=== PATIENT | male | born 1950 | race Caucasian/White ===

== ENCOUNTER 2017-12-11 09:17 | Inpatient (IN) | payer OTHER ==
[2017-12-09 16:11] LABS: BASOPHILS % (AUTO) 0.4 % (0-1); EOSINOPHILS # (AUTO) 0.2 X10'3 (0-0.9); EOSINOPHILS % (AUTO) 2.5 % (0-6); LYMPHOCYTES # (AUTO) 2.2 X10'3 (1.1-4.8); LYMPHOCYTES % (AUTO) 24.7 % (21-51); MEAN CORPUSCULAR HEMOGLOBIN 28.2 PG (27.0-31.0); MEAN CORPUSCULAR HGB CONC 32.7 % (33.0-36.5); MEAN CORPUSCULAR VOLUME 86.4 FL (78-98); MONOCYTES # (AUTO) 0.9 X10'3 (0-0.9); MONOCYTES % (AUTO) 9.7 % (2-12); NEUTROPHILS # (AUTO) 5.6 X10'3 (1.8-7.7); NEUTROPHILS % (AUTO) 62.7 % (42-75); PRE OP HEMATOCRIT 47.5 % (42.0-52.0); PRE OP HEMOGLOBIN 15.5 g/dL (14.0-17.9); PRE OP PLATELET COUNT 192 X10'3 (140-440); RED CELL DISTRIBUTION WIDTH 13.4 % (11.5-14.5)
[2017-12-09 16:19] LABS: CLARITY,URINE CLEAR (Clear); COLOR,URINE STRAW (Yellow); GLUCOSE, URINE >=1000 mg/dl (Neg); KETONES,URINE NEGATIVE (Neg); LEUKOCYTE ESTERASE ,URINE NEGATIVE (Neg); NITRITES, URINE NEGATIVE (Neg); OCCULT BLOOD,URINE NEGATIVE (Neg); PROTEIN,URINE NEGATIVE (Neg); UROBILINOGEN,URINE 0.2 E.U/dL (0.2-1.0)
[2017-12-09 16:21] LABS: PRE OP PROTIME 9.9 SECONDS (9.0-12.0)
[2017-12-09 16:29] LABS: ALBUMIN 3.9 G/DL (3.4-5.0); ALBUMIN/GLOBULIN RATIO 1.1 (1.1-1.5); ALKALINE PHOSPHATASE 53 IU/L (46-116); BLOOD UREA NITROGEN 23 MG/DL (7-18); BUN/CREATININE RATIO 18.7 (5.4-32.0); CALCIUM 9.5 MG/DL (8.5-10.1); CHLORIDE 101 MMOL/L (99-107); CREATININE 1.23 MG/DL (0.60-1.10); PRE OP ALT 37 U/L (30-65); PRE OP ANION GAP 8 (8-16); PRE OP AST 25 U/L (10-37); PRE OP BILIRUB, TOTAL 0.5 MG/DL (0.0-1.0); PRE OP GLUCOSE 193 MG/DL (70-104); PRE OP SODIUM 136 MMOL/L (135-145); TOTAL CARBON DIOXIDE 27.1 MMOL/L (24-32); TOTAL PROTEIN 7.5 G/DL (6.4-8.2); eGFR 59 ML/MIN
[2017-12-09 16:32] LABS: UA COLLECTION TYPE CLN CATCH MIDSTREAM
[2017-12-09 16:36] LABS: BACTERIA,URINE NONE SEEN /HPF (Neg); MUCUS STRANDS NONE SEEN /LPF (Neg); RBC,URINE NONE SEEN /HPF (0-2); SQUAMOUS EPITHELIAL CELL,UR FEW /LPF (FEW); WBC,URINE 0-4 /HPF (0-4)
[~2017-12-11] VITALS: Ht 182.9 cm; Wt 122.7 kg
[2017-12-11] VITALS (21 sets, daily range): BP systolic 110–144; BP diastolic 54–86
[~2017-12-11 09:17] MED LIST: ASPI-611 PO; ATOR40TA PO; CLOP75TA15 PO; EMPA10TA PO; FINA5TAB11 PO; GABA-532 PO; GLIP10TA11 PO; HYDR-3973 PO; INSU100V12 SQ; LISI-600 PO; METF10004 PO; QUET100T33 PO; TEMA30CA PO; TERA1CAP4 PO; TRAM50TA2 PO; VENL-190 PO; ceFAZolin inj. 3,000 MG in normal saline 100ml IV soln 100 ML IV ONE; famotidine 20mg tablet PO ONE; ringers solution, lacted 1,000 ML IV SCH
[2017-12-11] MEDS ORDERED: ceFAZolin 1000mg inj ONE (09:55)
[2017-12-11] MEDS ORDERED: heparin 10,000 units/1 ML INJ ONE (09:55)
[2017-12-11] MEDS ORDERED: LIDOcaine 1% (10mg/ml) 2ml vial ONE (10:04)
[2017-12-11] MEDS ORDERED: ringers solution, lacted 1,000 ML IV SCH (10:27)
[2017-12-11] MEDS ORDERED: ondansetron/PF 4mg/2ml inj IV PRN ×2 (10:30→12:50)
[2017-12-11] MEDS ORDERED: proCHLORperazine 10 MG/2 ml inj IV PRN (10:30)
[2017-12-11] MEDS ORDERED: meperidine/PF 25mg/ml syringe IV PRN ×3 (10:30)
[2017-12-11] MEDS ORDERED: morphine 4 MG/ML inj SYRINge IV PRN ×2 (10:30)
[2017-12-11] MEDS ORDERED: ePHEDrine 50MG/ML INJ. ONE (11:04)
[2017-12-11] MEDS ORDERED: sevoflurane 250ml liquid IH ONE (11:04)
[2017-12-11] MEDS ORDERED: heparin 1,000 units/ml 10ml inj ONE (11:04)
[2017-12-11] MEDS ORDERED: midazolam 2 mg/2 ml injection ONE (11:05)
[2017-12-11] MEDS ORDERED: fentaNYL /PF 50mcg/ml 5ml ampule ONE (11:05)
[2017-12-11] MEDS ORDERED: propofol inj 20 ML IV ONE (11:24)
[2017-12-11] MEDS ORDERED: rocuronium 10mg/ml inj IV ONE (11:24)
[2017-12-11] MEDS ORDERED: neostigmine methylsulfate 1 MG/ML 10ml vial ONE (12:41)
[2017-12-11] MEDS ORDERED: dextrose ORAL solution 15 GM/59 ML bottle PO PRN ×2 (12:50)
[2017-12-11] MEDS ORDERED: HYDROcodone/acetaminophen 5mg/325mg tablet PO PRN (12:50)
[2017-12-11] MEDS ORDERED: MESSAGE TO PHARMACY PO ONE (12:50)
[2017-12-11] MEDS ORDERED: naloxone 0.4 mg/ml inj IV PRN (12:50)
[2017-12-11] MEDS ORDERED: glucagon, human recombinant 1mg kit SUBCUT PRN (12:50)
[2017-12-11] MEDS ORDERED: CADD PCA waste documentation MC PRN (12:50)
[2017-12-11] MEDS ORDERED: dextrose 50%-water 50ml dispensing syringe IV PRN ×2 (12:50)
[2017-12-11] MEDS ORDERED: glycopyrrolate 0.2mg/ml inj ONE (12:52)
[2017-12-11] MEDS: HYDROmorphone/NS 1 mg/ml CADD 50 ML IV SCH ×6 (13:25→23:00)
[2017-12-11] MEDS ORDERED: TEMAZEPAM PO SCH (15:00)
[2017-12-11] MEDS ORDERED: HYDROcodone/acetaminophen 10/325mg tab PO PRN (15:00)
[2017-12-11] MEDS ORDERED: HYDR-3972 PO (15:00)
[2017-12-11] MEDS ORDERED: traMADol 50MG tablet PO PRN (15:00)
[2017-12-11] MEDS: ceFAZolin 1GM/D5W- ADD-VANTAGE 50 ML IV SCH (15:34)
[2017-12-11] MEDS ORDERED: INSULIN DETEMIR 48 UNIT SQ SCH (20:00)
[2017-12-11] MEDS ORDERED: non-formulary drug (Glipizide 1 TAB) PO SCH (20:00)
[2017-12-11] MEDS: metFORMIN 500mg tablet PO SCH (21:00)
[2017-12-11] MEDS ORDERED: METFORMIN HCL PO SCH (21:00)
[2017-12-11] MEDS: gabapentin 300mg capsule PO SCH (21:04)
[2017-12-11] MEDS: Terazosin 1mg capsule PO SCH (21:04)
[2017-12-11] MEDS: venlafaxine XR 75mg capsule (Q24H) PO SCH (21:04)
[2017-12-11] MEDS: quetiapine 100mg tablet PO PRN (21:09)
[2017-12-11] MEDS: temazepam 15mg capsule PO PRN (21:10)
[2017-12-11] MEDS: insulin glargine (Lantus) pen - multi-dose SQ SCH (21:12)
[2017-12-11] MEDS: benzocaine/menthol oral lozeng 1 EACH BOX MM PRN (23:34)
[2017-12-12] VITALS (8 sets, daily range): BP systolic 100–142; BP diastolic 50–79
[2017-12-12] MEDS: ceFAZolin 1GM/D5W- ADD-VANTAGE 50 ML IV SCH ×2 (00:03→08:00)
[2017-12-12] MEDS: HYDROmorphone/NS 1 mg/ml CADD 50 ML IV SCH ×12 (01:00→23:00)
[2017-12-12] MEDS: JARDIANCE 10 MG PO SCH (08:00)
[2017-12-12] MEDS ORDERED: non-formulary drug (Aspirin (Aspir 81) 1 TAB) PO SCH (08:00)
[2017-12-12] MEDS ORDERED: non-formulary drug (Atorvastatin Calcium* (Lipitor*) 1 TAB) PO SCH (08:00)
[2017-12-12] MEDS ORDERED: EMPAGLIFLOZIN PO SCH (08:00)
[2017-12-12] MEDS: insulin Lispro (HumaLOG) vial - multi-dose SQ SCH ×3 (08:20→19:29)
[2017-12-12] MEDS: metFORMIN 500mg tablet PO SCH ×2 (08:28→17:22)
[2017-12-12] MEDS: atorvastatin 20mg tablet PO SCH (08:28)
[2017-12-12] MEDS: finasteride 5mg tablet PO SCH (08:28)
[2017-12-12] MEDS: venlafaxine XR 75mg capsule (Q24H) PO SCH ×2 (08:29→19:29)
[2017-12-12] MEDS: lisinopril 20mg tablet PO SCH (08:29)
[2017-12-12] MEDS: aspirin 81mg tablet.DR PO SCH (08:29)
[2017-12-12] MEDS: gabapentin 300mg capsule PO SCH ×3 (08:30→21:16)
[2017-12-12] MEDS: clopidogrel 75mg tablet PO SCH (08:30)
[2017-12-12] MEDS: enoxaparin 40mg/0.4ml syringe SQ SCH (08:31)
[2017-12-12] MEDS: ringers solution, lacted 1,000 ML IV SCH (17:09)
[2017-12-12] MEDS: insulin glargine (Lantus) pen - multi-dose SQ SCH (21:15)
[2017-12-12] MEDS: Terazosin 1mg capsule PO SCH (21:17)
[2017-12-12] MEDS: benzocaine/menthol oral lozeng 1 EACH BOX MM PRN (21:17)
[2017-12-12] MEDS: quetiapine 100mg tablet PO PRN (22:14)
[2017-12-12] MEDS: temazepam 15mg capsule PO PRN (22:14)
[2017-12-13] VITALS: BP 98/53
[2017-12-13] MEDS: HYDROmorphone/NS 1 mg/ml CADD 50 ML IV SCH ×10 (01:00→19:00)
[2017-12-13] MEDS: ringers solution, lacted 1,000 ML IV SCH ×2 (01:44→17:00)
[2017-12-13] MEDS: venlafaxine XR 75mg capsule (Q24H) PO SCH ×2 (07:50→19:04)
[2017-12-13] MEDS: metFORMIN 500mg tablet PO SCH ×2 (07:50→17:49)
[2017-12-13] MEDS: aspirin 81mg tablet.DR PO SCH (07:50)
[2017-12-13] MEDS: gabapentin 300mg capsule PO SCH ×2 (07:50→13:59)
[2017-12-13] MEDS: clopidogrel 75mg tablet PO SCH (07:50)
[2017-12-13] MEDS: atorvastatin 20mg tablet PO SCH (07:52)
[2017-12-13] MEDS: enoxaparin 40mg/0.4ml syringe SQ SCH (07:53)
[2017-12-13] MEDS: lisinopril 20mg tablet PO SCH (07:57)
[2017-12-13 08:00] VITALS: BP 85/45
[2017-12-13] MEDS: JARDIANCE 10 MG PO SCH (08:02)
[2017-12-13] MEDS: finasteride 5mg tablet PO SCH (08:02)
[2017-12-13 08:30] VITALS: BP 111/57
[2017-12-13] MEDS: insulin Lispro (HumaLOG) vial - multi-dose SQ SCH ×2 (09:17→19:04)
[2017-12-13 12:00] VITALS: BP 125/54
[2017-12-13 18:00] VITALS: BP 111/50
== END 2017-12-13 19:45 | disposition home or self-care (01) | DRG 254 ==
LOC: PAS IN 09:17 → EDSTATUS 12:15 → SUR 3N 12:50
PROVIDERS: ADMIT Surgery; ATTEND Surgery
PROC: 04CL0ZZ Extirpation of Matter from Left Femoral Artery, Open Approach (ICD-10-PCS; principal; 2017-12-12)
PROC: 04UJ0JZ Supplement Left External Iliac Artery with Synthetic Substitute, Open Approach (ICD-10-PCS; 2017-12-12)
DX: I70.212 Atherosclerosis of native arteries of extremities with intermittent claudication, left leg (principal); E29.1 Testicular hypofunction; F43.10 Post-traumatic stress disorder, unspecified; E11.51 Type 2 diabetes mellitus with diabetic peripheral angiopathy without gangrene; Z96.659 Presence of unspecified artificial knee joint; E66.9 Obesity, unspecified; F32.9 Major depressive disorder, single episode, unspecified; M46.96 Unspecified inflammatory spondylopathy, lumbar region; J44.9 Chronic obstructive pulmonary disease, unspecified; I10 Essential (primary) hypertension; R33.9 Retention of urine, unspecified; Z82.49 Family history of ischemic heart disease and other diseases of the circulatory system; Z86.010 Personal history of colon polyps; Z87.01 Personal history of pneumonia (recurrent); Z68.36 Body mass index [BMI] 36.0-36.9, adult; Z87.891 Personal history of nicotine dependence
CPT/HCPCS: 36415; 80053; 81001; 82948; 83036; 85025; 85610; 85730; 86885; 86900; 86901; 87070; A6258; A7000; C1758; J0690; J1170; J1644; J1650; J1815; J2250; J2270; J2704; J2710; J3010; J3490; J7030; J7120

== ENCOUNTER 2019-04-01 05:18 | Inpatient (IN) | payer OTHER ==
[2019-03-31 10:24] LABS: BASOPHILS % (AUTO) 0.6 % (0-1); EOSINOPHILS # (AUTO) 0.2 X10'3 (0-0.9); LYMPHOCYTES # (AUTO) 1.8 X10'3 (1.1-4.8); LYMPHOCYTES % (AUTO) 23.8 % (21-51); MEAN CORPUSCULAR HGB CONC 33.3 g/dL (33.0-36.5); MEAN PLATELET VOLUME 7.6 FL (7.4-10.4); MONOCYTES # (AUTO) 0.8 X10'3 (0-0.9); MONOCYTES % (AUTO) 10.5 % (2-12); NEUTROPHILS # (AUTO) 4.9 X10'3 (1.8-7.7); NEUTROPHILS % (AUTO) 63.1 % (42-75); PRE OP HEMATOCRIT 52.8 % (42.0-52.0); PRE OP HEMOGLOBIN 17.6 g/dL (14.0-17.9); PRE OP PLATELET COUNT 186 X10'3 (140-440); RED BLOOD COUNT 6.07 X10'6 (4.70-6.10); RED CELL DISTRIBUTION WIDTH 14.1 % (11.5-14.5)
[2019-03-31 10:26] LABS: PRE OP PROTIME 10.3 SECONDS (9.0-12.0)
[2019-03-31 11:02] LABS: CLARITY,URINE CLEAR (Clear); COLOR,URINE YELLOW (Yellow); GLUCOSE, URINE >=1000 mg/dl (Neg); KETONES,URINE NEGATIVE (Neg); LEUKOCYTE ESTERASE ,URINE NEGATIVE (Neg); NITRITES, URINE NEGATIVE (Neg); OCCULT BLOOD,URINE NEGATIVE (Neg); PROTEIN,URINE NEGATIVE (Neg); UROBILINOGEN,URINE 0.2 E.U/dL (0.2-1.0)
[2019-03-31 11:09] LABS: UA COLLECTION TYPE CLN CATCH MIDSTREAM
[2019-03-31 11:11] LABS: ALBUMIN/GLOBULIN RATIO 1.2 (1.1-1.5); ALKALINE PHOSPHATASE 59 IU/L (46-116); BLOOD UREA NITROGEN 26 MG/DL (7-18); BUN/CREATININE RATIO 24.1 (5.4-32.0); CALCIUM 9.8 MG/DL (8.5-10.1); CHLORIDE 104 MMOL/L (99-107); CREATININE 1.08 MG/DL (0.60-1.10); PRE OP ALT 36 U/L (30-65); PRE OP ANION GAP 8 (8-16); PRE OP AST 29 U/L (10-37); PRE OP BILIRUB, TOTAL 0.7 MG/DL (0.0-1.0); PRE OP GLUCOSE 178 MG/DL (70-104); PRE OP POTASSIUM 4.3 MMOL/L (3.4-5.1); PRE OP SODIUM 138 MMOL/L (135-145); TOTAL CARBON DIOXIDE 25.6 MMOL/L (24-32); TOTAL PROTEIN 7.4 G/DL (6.4-8.2); eGFR 68 ML/MIN
[2019-03-31 11:59] LABS: HEMOGLOBIN A1C 7.4 % (4.5-6.2)
[2019-03-31 12:08] LABS: SQUAMOUS EPITHELIAL CELL,UR NONE SEEN /LPF (FEW)
[2019-03-31 12:10] LABS: BACTERIA,URINE NONE SEEN /HPF (Neg); RBC,URINE 0-2 /HPF (0-2); WBC,URINE 0-4 /HPF (0-4)
[2019-04-01] VITALS (20 sets, daily range): BP systolic 93–144; BP diastolic 53–78
[~2019-04-01] VITALS: Ht 182.9 cm; Wt 125.7 kg
[~2019-04-01 05:18] MED LIST changes: +CILO50TA PO; -CLOP75TA15 PO; +HYDR-3972 PO; -HYDR-3973 PO; +METF-438 PO; -METF10004 PO; +VITAMIN B-12; -ceFAZolin inj. 3,000 MG in normal saline 100ml IV soln 100 ML IV ONE; -famotidine 20mg tablet PO ONE
[2019-04-01] MEDS ORDERED: cefazolin/dext.iso 2gm/100ml 100 ML IV ONE (05:30)
[2019-04-01] MEDS ORDERED: famotidine 20mg tablet PO ONE (05:30)
[2019-04-01] MEDS ORDERED: ceFAZolin 1000mg inj ONE (06:47)
[2019-04-01] MEDS ORDERED: ePHEDrine 50MG/ML INJ. ONE (07:21)
[2019-04-01] MEDS ORDERED: DOPamine/D5W 400mg/250ml bag IV ONE (07:21)
[2019-04-01] MEDS ORDERED: sevoflurane 250ml liquid IH ONE (07:21)
[2019-04-01] MEDS ORDERED: fentaNYL /PF 50mcg/ml 5ml ampule ONE (07:24)
[2019-04-01] MEDS ORDERED: midazolam 2 mg/2 ml injection ONE (07:24)
[2019-04-01] MEDS ORDERED: propofol inj 20 ML IV ONE (07:26)
[2019-04-01] MEDS ORDERED: rocuronium 10mg/ml inj IV ONE ×2 (07:27→08:57)
[2019-04-01] MEDS ORDERED: iohexol 300mg/ml 100ml inj. ONE (07:45)
[2019-04-01] MEDS ORDERED: heparin 1,000 UNITS/NS 500ml 500 ML ONE (07:48)
[2019-04-01] MEDS: heparin 10,000 units/1 ML INJ ONE ×2 (08:11→08:12)
[2019-04-01] MEDS ORDERED: albumin (Human) 5% 250ml 250 ML IV ONE ×3 (08:57→10:41)
[2019-04-01] MEDS ORDERED: ringers solution, lacted 1,000 ML IV SCH (09:14)
[2019-04-01] MEDS ORDERED: meperidine/PF 25mg/ml syringe IV PRN ×3 (09:15)
[2019-04-01] MEDS ORDERED: ondansetron/PF 4mg/2ml inj IV PRN (09:15)
[2019-04-01] MEDS ORDERED: proCHLORperazine 10 MG/2 ml inj IV PRN (09:15)
[2019-04-01] MEDS ORDERED: morphine 4 MG/ML inj SYRINge IV PRN ×2 (09:15)
[2019-04-01] MEDS ORDERED: Potassium Cl inj 20 MEQ in ringers solution, lacted 1,000 ML IV SCH (09:16)
[2019-04-01] MEDS ORDERED: glucagon, human recombinant 1mg kit SUBCUT PRN (09:20)
[2019-04-01] MEDS ORDERED: dextrose 50%-water 50ml dispensing syringe IV PRN ×4 (09:20→13:15)
[2019-04-01] MEDS ORDERED: MESSAGE TO PHARMACY PO ONE ×2 (09:20→13:15)
[2019-04-01] MEDS ORDERED: CADD PCA waste documentation MC PRN (09:20)
[2019-04-01] MEDS ORDERED: naloxone 0.4 mg/ml inj IV PRN (09:20)
[2019-04-01] MEDS ORDERED: dextrose ORAL solution 15 GM/59 ML bottle PO PRN ×4 (09:20→13:15)
[2019-04-01] MEDS ORDERED: heparin 10,000 units/1 ML INJ IV PRN (10:35)
[2019-04-01] MEDS ORDERED: heparin 10,000 units/1 ML INJ IV ONE (10:35)
[2019-04-01] MEDS ORDERED: heparin 1,000unit/ml 10ml vial 10 ML ONE ×2 (10:47)
[2019-04-01] MEDS ORDERED: HYDROmorphone/NS 1 mg/ml CADD 50 ML IV SCH (11:00)
--- NOTE | 2019-04-01 11:02 | NUR ---
Received from OR via ICU BED , accompanied by Anesthesiologist DENISE and report given by Anesthesiolgist. PATIENT WITH 18G PIV X2 IN LEFT UE. RIGHT ART LINE PRESENT. PROVENA DRESSING TO RIGHT INGUINAL AREA. DENIES PAIN. VSS AT THIS TIME. Addendum: 04/01/19 at 1117 by Corey Reyes RN, RN Amended: Links added.
[2019-04-01 11:21] LABS: ISTAT HGB 15.6 g/dl (14.0-18.0); ISTAT IONIZED CALCIUM 1.05 mmol/L (1.03-1.32); ISTAT K 4.7 mmol/L (3.5-5.1)
[2019-04-01] MEDS: heparin 25,000 UNIT/250ml bag 250 ML IV SCH ×2 (11:45→22:09)
--- NOTE | 2019-04-01 12:02 | NUR ---
Report called to receiving nurse. Transferred via ICU BED WITH 2 BAGS OF Belongings. Special Issues communicated to receiving nurse JIMBO FRANKLIN. DRESSING IS CDI TO RIGHT INGUINAL AREA. VSS AT THIS TIME. EMANUEL AND JIMBO PRESENT TO ACCEPT CARE AND TO ASSIST IN SET UP OF THIS PATIENT. CADD PUMP UP AND RUNNING. Addendum: 04/01/19 at 1223 by Corey Reyes RN, RN Amended: Links added.
[2019-04-01] MEDS: HYDROmorphone/NS 1 mg/ml CADD 50 ML IV SCH ×6 (12:10→23:00)
--- NOTE | 2019-04-01 12:17 | NUR ---
ICU TO ADMINISTER IV/SQ INSULIN. NOEMI AWARE Addendum: 04/01/19 at 1217 by Corey Handley - NOEMI FRANKLIN Amended: Links added.
[2019-04-01] MEDS: DOPamine 400mg/D5W 250ml 250 ML IV SCH ×2 (12:42→23:14)
[2019-04-01] MEDS ORDERED: CYAN100T45 PO (13:04)
[2019-04-01] MEDS ORDERED: insulin Lispro (HumaLOG) vial - multi-dose SQ SCH (13:15)
[2019-04-01] MEDS: insulin Lispro (HumaLOG) vial - multi-dose SQ SCH ×2 (14:04→20:48)
--- NOTE | 2019-04-01 18:36 | NUR ---
assumed care from Maureen RN no questions or concerns after assuming care
[2019-04-01] MEDS: insulin glargine (Lantus) pen - multi-dose SQ SCH (20:50)
[2019-04-01] MEDS ORDERED: insulin glargine (Lantus) pen - multi-dose SQ SCH (21:00)
--- NOTE | 2019-04-01 22:18 | NUR ---
PATIENT IN BED EYES CLOSED RR EVEN UN LABORED NO OBSERVABLE S/S OF ACUTE STRESS AT THIS TIME WILL CONTINUE TO MONITOR
[2019-04-02] VITALS (19 sets, daily range): BP systolic 82–150; BP diastolic 46–78
[2019-04-02] MEDS: heparin 25,000 UNIT/250ml bag 250 ML IV SCH ×2 (00:25→13:11)
[2019-04-02] MEDS: HYDROmorphone/NS 1 mg/ml CADD 50 ML IV SCH ×12 (01:00→23:00)
--- NOTE | 2019-04-02 01:21 | NUR ---
PATIENT IN BED LYING ON RIGHT SIDE WITH PILLOWS SUPPORTING EXTREMITIES, RR EVEN UN LABORED NO OBSERVABLE S/S OF ACUTE STRESS AT THIS TIME WILL CONTINUE TO MONITOR
[2019-04-02 03:20] LABS: BASOPHILS % (AUTO) 0.3 % (0-1); EOSINOPHILS % (AUTO) 0 % (0-6); HEMATOCRIT 43.6 % (42.0-52.0); HEMOGLOBIN 14.4 g/dl (14.0-17.9); LYMPHOCYTES # (AUTO) 1.2 X10'3 (1.1-4.8); LYMPHOCYTES % (AUTO) 10.1 % (21-51); MEAN CORPUSCULAR HEMOGLOBIN 28.8 PG (27.0-31.0); MEAN CORPUSCULAR HGB CONC 33.2 g/dL (33.0-36.5); MEAN CORPUSCULAR VOLUME 86.8 FL (78-98); MEAN PLATELET VOLUME 7.4 FL (7.4-10.4); MONOCYTES # (AUTO) 1.3 X10'3 (0-0.9); NEUTROPHILS # (AUTO) 9.3 X10'3 (1.8-7.7); NEUTROPHILS % (AUTO) 78.6 % (42-75); PLATELET COUNT 167 X10'3 (140-440); RED BLOOD COUNT 5.02 X10'6 (4.70-6.10); RED CELL DISTRIBUTION WIDTH 14.5 % (11.5-14.5); WHITE BLOOD COUNT 11.9 X10'3 (4.5-11.0)
[2019-04-02 03:36] LABS: ALANINE AMINOTRANSFERASE 41 U/L (12-78); ALBUMIN 3.6 G/DL (3.4-5.0); ALBUMIN/GLOBULIN RATIO 1.4 (1.1-1.5); ALKALINE PHOSPHATASE 45 IU/L (46-116); ANION GAP 13 (8-16); ASPARTATE AMINO TRANSFERASE 84 U/L (10-37); BILIRUBIN,TOTAL 1.2 MG/DL (0.1-1.0); BLOOD UREA NITROGEN 19 MG/DL (7-18); BUN/CREATININE RATIO 17.8 (5.4-32.0); CALCIUM 7.8 MG/DL (8.5-10.1); CHLORIDE 103 MMOL/L (99-107); CREATININE 1.07 MG/DL (0.60-1.10); GLUCOSE 220 MG/DL (70-104); SODIUM 142 MMOL/L (135-145); TOTAL CARBON DIOXIDE 26.3 MMOL/L (24-32); TOTAL PROTEIN 6.2 G/DL (6.4-8.2); eGFR 69 ML/MIN
--- NOTE | 2019-04-02 04:04 | NUR ---
PATIENT IN BED EYES CLOSED DOES NOT WANT BLANKET ONLY SHEET RR EVEN UN LABORED NO OBSERVABLE S/S OF ACUTE STRESS AT THIS TIME WILL CONTINUE TO MONITOR
--- NOTE | 2019-04-02 06:00 | NUR ---
Patient in room [facility] 2011. I have received report from NOEMI Lloyd and had the opportunity to ask questions and assume patient care. Addendum: 04/02/19 at 0935 by Alexandra Lr RN Amended: Links added.
--- NOTE | 2019-04-02 06:33 | NUR ---
SBAR TO BRENT FRANKLIN NO QUESTIONS OR CONCERNS AFTER ASSUMING CARE
[2019-04-02] MEDS: insulin Lispro (HumaLOG) vial - multi-dose SQ SCH ×3 (10:29→18:58)
[2019-04-02] MEDS ORDERED: HYDROcodone/acetaminophen 10/325mg tab PO PRN (12:25)
[2019-04-02] MEDS: gabapentin 300mg capsule PO SCH ×2 (13:16→20:27)
--- NOTE | 2019-04-02 17:41 | NUR ---
Patient in room [facility] 2011. I have received report from Alexandra FRANKLIN and had the opportunity to ask questions and assume patient care.
--- NOTE | 2019-04-02 18:30 | NUR ---
Problems reprioritized. Patient report given, questions answered & plan of care reviewed with Lala Valero RN.
--- NOTE | 2019-04-02 18:32 | NUR ---
Patient in room [facility] 346. I have received report from NOEMI Britton and had the opportunity to ask questions and assume patient care. Addendum: 04/02/19 at 1833 by Martita Ellis RN Amended: Links added.
[2019-04-02] MEDS: glipizide 5mg tablet PO SCH (20:27)
[2019-04-02] MEDS: cilostazol 50mg tablet PO SCH (20:28)
[2019-04-02] MEDS: insulin glargine (Lantus) pen - multi-dose SQ SCH ×2 (20:34→21:00)
[2019-04-03 00:15] VITALS: BP 133/73
[2019-04-03] MEDS: HYDROmorphone/NS 1 mg/ml CADD 50 ML IV SCH ×10 (01:00→19:00)
[2019-04-03] MEDS: heparin 25,000 UNIT/250ml bag 250 ML IV SCH ×2 (01:43→13:31)
--- NOTE | 2019-04-03 06:29 | NUR ---
Problems reprioritized. Patient report given, questions answered & plan of care reviewed with NOEMI Britton. Addendum: 04/03/19 at 0629 by Martita Ellis RN Amended: Links added.
--- NOTE | 2019-04-03 06:37 | NUR ---
Patient in room [facility]. I have received report from Lala Valero RN and had the opportunity to ask questions and assume patient care.
[2019-04-03] MEDS: aspirin 81mg tablet.DR PO SCH (07:17)
[2019-04-03] MEDS: gabapentin 300mg capsule PO SCH ×3 (07:17→21:31)
[2019-04-03] MEDS: cilostazol 50mg tablet PO SCH ×2 (07:17→21:31)
[2019-04-03] MEDS: atorvastatin 20mg tablet PO SCH (07:17)
[2019-04-03] MEDS: lisinopril 20mg tablet PO SCH (07:21)
[2019-04-03] MEDS: insulin glargine (Lantus) pen - multi-dose SQ SCH ×3 (07:24→21:24)
[2019-04-03] MEDS: finasteride 5mg tablet PO SCH (07:25)
[2019-04-03 07:35] LABS: BASOPHILS # (AUTO) 0.1 X10'3 (0-0.2); BASOPHILS % (AUTO) 0.5 % (0-1); EOSINOPHILS % (AUTO) 0.2 % (0-6); HEMATOCRIT 39.8 % (42.0-52.0); HEMOGLOBIN 12.9 g/dl (14.0-17.9); LYMPHOCYTES # (AUTO) 1.8 X10'3 (1.1-4.8); LYMPHOCYTES % (AUTO) 14.5 % (21-51); MEAN CORPUSCULAR HEMOGLOBIN 28.7 PG (27.0-31.0); MEAN CORPUSCULAR HGB CONC 32.3 g/dL (33.0-36.5); MEAN CORPUSCULAR VOLUME 88.8 FL (78-98); MEAN PLATELET VOLUME 7.5 FL (7.4-10.4); MONOCYTES # (AUTO) 1.5 X10'3 (0-0.9); MONOCYTES % (AUTO) 12.2 % (2-12); NEUTROPHILS # (AUTO) 9.1 X10'3 (1.8-7.7); NEUTROPHILS % (AUTO) 72.6 % (42-75); PLATELET COUNT 187 X10'3 (140-440); RED BLOOD COUNT 4.49 X10'6 (4.70-6.10); RED CELL DISTRIBUTION WIDTH 14.6 % (11.5-14.5); WHITE BLOOD COUNT 12.5 X10'3 (4.5-11.0)
[2019-04-03] MEDS: glipizide 5mg tablet PO SCH (07:42)
[2019-04-03] MEDS: (Empagliflozin (Jardiance) 1 TAB) PO SCH (08:00)
[2019-04-03 09:03] VITALS: BP 145/94
[2019-04-03] MEDS: insulin Lispro (HumaLOG) vial - multi-dose SQ SCH ×4 (09:29→21:22)
[2019-04-03] MEDS ORDERED: normal saline 500ml IV soln 1,000 ML IV SCH (09:45)
[2019-04-03] MEDS ORDERED: normal saline 1000ml 1,000 ML IV SCH (10:05)
[2019-04-03 12:00] VITALS: BP 124/71
--- NOTE | 2019-04-03 15:13 | NUR ---
1230 PTT 51. Heparin bag replaced. Lab within therapeutic range not need for dose adjustment at this time.
--- NOTE | 2019-04-03 16:25 | NUR ---
DM consult: Pt/SO seen by RD for written/verbal DM ed w/ RD contact information provided. Pt declined verbal DM review. RD encouraged attending CDE course and to contact RD if further questions/concerns. Addendum: 04/03/19 at [address] Amended: Links added.
[2019-04-03 18:00] VITALS: BP 97/50
--- NOTE | 2019-04-03 18:42 | NUR ---
Problems reprioritized. Patient report given, questions answered & plan of care reviewed with Garrett FRANKLIN.
--- NOTE | 2019-04-03 18:48 | NUR ---
Patient in room [facility]. I have received report from NEEL FRANKLIN and had the opportunity to ask questions and assume patient care.
--- NOTE | 2019-04-03 18:56 | NUR ---
Per Dr Brooks ok to discharge patient on 04/04 in am no need for him to round on patient. Patient already has pain medication
--- NOTE | 2019-04-03 20:00 | NUR ---
CALLED DR CHEN ABOUT PATIENT WITH ORDER FOR DISCHARGE IN THE MORNING AND STILL ON HEPARIN DRIP AND DILAUDED CLOTH WEAVER WITH ORDER TO D/C HEPARIN DRIP AND D/C DILAUDED CLOTH WEAVER AND START NORCO FOR PAIN.
[2019-04-03] MEDS: HYDROcodone/acetaminophen 10/325mg tab PO PRN (21:31)
[2019-04-04] VITALS (12 sets, daily range): BP systolic 80–150; BP diastolic 46–64
[2019-04-04] MEDS ORDERED: normal saline 1000ml 1,000 ML IV ONE (00:50)
--- NOTE | 2019-04-04 00:55 | NUR ---
Dr. Ospina made aware of pts blood pressure of 80s/50s, and pts normal trend being well above 120s SBP. Pt asymptomatic at this time, Creatinine reviewed at 1.07 on 04/02 Dr. carrillo. He ordered a Bolus of 1 L and CBC to follow then a call back with the H&H. Addendum: 04/04/19 at 0100 by Sujey Plascencia RN Amended: Links added.
[2019-04-04 02:32] LABS: BASOPHILS % (AUTO) 0.4 % (0-1); EOSINOPHILS # (AUTO) 0.1 X10'3 (0-0.9); EOSINOPHILS % (AUTO) 0.4 % (0-6); HEMATOCRIT 30.9 % (42.0-52.0); HEMOGLOBIN 10.3 g/dl (14.0-17.9); LYMPHOCYTES # (AUTO) 1.6 X10'3 (1.1-4.8); LYMPHOCYTES % (AUTO) 12.5 % (21-51); MEAN CORPUSCULAR HEMOGLOBIN 29.1 PG (27.0-31.0); MEAN CORPUSCULAR HGB CONC 33.2 g/dL (33.0-36.5); MEAN CORPUSCULAR VOLUME 87.5 FL (78-98); MEAN PLATELET VOLUME 7.4 FL (7.4-10.4); MONOCYTES # (AUTO) 1.6 X10'3 (0-0.9); MONOCYTES % (AUTO) 12.8 % (2-12); NEUTROPHILS # (AUTO) 9.1 X10'3 (1.8-7.7); NEUTROPHILS % (AUTO) 73.9 % (42-75); PLATELET COUNT 159 X10'3 (140-440); RED BLOOD COUNT 3.53 X10'6 (4.70-6.10); RED CELL DISTRIBUTION WIDTH 14.3 % (11.5-14.5); WHITE BLOOD COUNT 12.4 X10'3 (4.5-11.0)
[2019-04-04] MEDS ORDERED: dextrose 5%-lactated ringers 1,000 ML IV SCH (03:40)
--- NOTE | 2019-04-04 03:40 | NUR ---
DR. LAWRENCE WAS HERE TO SEE PATIENT AND WAS INFORMED OF BLOOD PRESSURE STILL ON THE LOW 80'S OVER HIGH 40'S AND HGB WAS 10.3 AND HCT OF 30.9 WITH ORDERS. TOLD PATIENT THAT HE MIGHT NOT BE ABLE TO GO HOME TODAY.
--- NOTE | 2019-04-04 04:00 | NUR ---
Responded to call from surgical at 0300 re: continued low BP despite fluid challenge; also staff concerned about bruising and possible hematoma R groin; pt awake, alert, offers no complaints; SBP 90s, w/HR 90s; R foot cool, but w/dopple dorsalis pedis pulse; large amount of bruising to R groin/inner R thigh, no real hematoma, prevena to groin intact; update given to Dr. Ospina; placed orders for CT.
[2019-04-04] MEDS ORDERED: iohexol 350 MG/ML 50ML vial IV ONE (04:01)
[2019-04-04] MEDS ORDERED: iohexol 350MG/ML 100ml bottle IV ONE (04:01)
[2019-04-04 05:10] LABS: BASOPHILS % (AUTO) 0.3 % (0-1); EOSINOPHILS % (AUTO) 0.4 % (0-6); HEMATOCRIT 31.4 % (42.0-52.0); HEMOGLOBIN 10.5 g/dl (14.0-17.9); LYMPHOCYTES # (AUTO) 1.8 X10'3 (1.1-4.8); MEAN CORPUSCULAR HEMOGLOBIN 29.4 PG (27.0-31.0); MEAN CORPUSCULAR HGB CONC 33.3 g/dL (33.0-36.5); MEAN CORPUSCULAR VOLUME 88.2 FL (78-98); MEAN PLATELET VOLUME 7.8 FL (7.4-10.4); MONOCYTES # (AUTO) 1.6 X10'3 (0-0.9); MONOCYTES % (AUTO) 12.7 % (2-12); NEUTROPHILS # (AUTO) 8.8 X10'3 (1.8-7.7); NEUTROPHILS % (AUTO) 71.6 % (42-75); PLATELET COUNT 150 X10'3 (140-440); RED BLOOD COUNT 3.56 X10'6 (4.70-6.10); RED CELL DISTRIBUTION WIDTH 14.4 % (11.5-14.5); WHITE BLOOD COUNT 12.2 X10'3 (4.5-11.0)
[2019-04-04 05:17] LABS: ALANINE AMINOTRANSFERASE 27 U/L (12-78); ALBUMIN 2.8 G/DL (3.4-5.0); ALKALINE PHOSPHATASE 41 IU/L (46-116); ANION GAP 11 (8-16); ASPARTATE AMINO TRANSFERASE 34 U/L (10-37); BILIRUBIN,TOTAL 1.2 MG/DL (0.1-1.0); BLOOD UREA NITROGEN 42 MG/DL (7-18); BUN/CREATININE RATIO 14.8 (5.4-32.0); CHLORIDE 96 MMOL/L (99-107); CREATININE 2.83 MG/DL (0.60-1.10); GLUCOSE 142 MG/DL (70-104); POTASSIUM 4.1 MMOL/L (3.5-5.1); SODIUM 131 MMOL/L (135-145); TOTAL CARBON DIOXIDE 24.5 MMOL/L (24-32); TOTAL PROTEIN 5.5 G/DL (6.4-8.2); eGFR 22 ML/MIN
--- NOTE | 2019-04-04 06:45 | NUR ---
Problems reprioritized. Patient report given, questions answered & plan of care reviewed with RAHUL FRANKLIN.
--- NOTE | 2019-04-04 06:56 | NUR ---
Patient in room [facility]. I have received report from NOEMI Tucker and had the opportunity to ask questions and assume patient care.
[2019-04-04] MEDS: lisinopril 20mg tablet PO SCH (07:14)
[2019-04-04] MEDS: aspirin 81mg tablet.DR PO SCH (07:18)
--- NOTE | 2019-04-04 07:19 | NUR ---
Dr Moffett from [facility] has called twice to see if Dr Ospina has reviewed CTA results taken 04/04. Dr Ospina was called to inform with call back phone number. Dr Ospina stated he would return the phone call when he got to the floor. Most recent vital signs reported to Dr Ospina. Will continue to monitor.
[2019-04-04] MEDS: cilostazol 50mg tablet PO SCH ×2 (07:38→20:38)
[2019-04-04] MEDS: gabapentin 300mg capsule PO SCH (07:38)
[2019-04-04] MEDS: atorvastatin 20mg tablet PO SCH (07:38)
[2019-04-04] MEDS: (Empagliflozin (Jardiance) 1 TAB) PO SCH (07:38)
[2019-04-04] MEDS: finasteride 5mg tablet PO SCH (07:38)
[2019-04-04] MEDS: insulin glargine (Lantus) pen - multi-dose SQ SCH ×3 (07:44→21:27)
[2019-04-04] MEDS: insulin Lispro (HumaLOG) vial - multi-dose SQ SCH ×3 (07:45→19:34)
[2019-04-04] MEDS ORDERED: albumin (Human) 5% 250ml 250 ML IV ONE (09:40)
[2019-04-04] MEDS ORDERED: normal saline 1000ml 1,000 ML IV SCH ×2 (09:40→11:43)
[2019-04-04] MEDS ORDERED: heparin 1,000 UNITS/NS 500ml 500 ML ICATH ONE (09:45)
[2019-04-04] MEDS ORDERED: midazolam 2 mg/2 ml injection IV PRN (09:45)
[2019-04-04] MEDS ORDERED: LIDOcaine 1%/PF 5ML 10 MG/ML VIAL SQ ONE (09:45)
[2019-04-04] MEDS ORDERED: fentaNYL/PF 50MCG/1 ML 2ML syringe IV PRN (09:45)
[2019-04-04] MEDS ORDERED: fentaNYL/PF 50MCG/1 ML 2ML syringe ONE ×3 (09:52→11:19)
[2019-04-04] MEDS ORDERED: LIDOcaine 1%/PF 5ML 10 MG/ML VIAL ONE (09:52)
[2019-04-04] MEDS ORDERED: midazolam 2 mg/2 ml injection ONE ×2 (09:52→11:05)
[2019-04-04] MEDS ORDERED: iohexol 300mg/ml 100ml inj. ONE (09:53)
[2019-04-04] MEDS ORDERED: heparin 1,000 UNITS/NS 500ml 500 ML ONE (09:53)
--- NOTE | 2019-04-04 10:16 | NUR ---
Pt transferred to IR, transported on gurney by 2 RN's. accompanied, all belongings sent on gurney with pt and .
[2019-04-04] MEDS ORDERED: ringers solution, lacted 1,000 ML IV ONE (10:50)
[2019-04-04] MEDS ORDERED: HYDROmorphone 1 mg/ml syringe ONE (11:42)
--- NOTE | 2019-04-04 12:20 | NUR ---
pt back from IR, all belongings brought with him. notified.
[2019-04-04] MEDS: gabapentin 100mg capsule PO SCH ×2 (13:11→20:38)
[2019-04-04] MEDS: sodium bicarbonate (8.4%) inj. 100 MEQ in dextrose 5%-water 1,000 ML IV SCH ×2 (13:11→18:28)
[2019-04-04] MEDS: acetylcysteine 200 MG/ml 4ml vial PO SCH ×2 (13:11→20:44)
[2019-04-04] MEDS: HYDROcodone/acetaminophen 10/325mg tab PO PRN ×2 (14:31→19:25)
--- NOTE | 2019-04-04 17:50 | NUR ---
Webb catheter placed at 1740. Pt tolerated well. Clear yellow urine flowing well. Will continue to monitor.
--- NOTE | 2019-04-04 18:13 | NUR ---
Problems reprioritized. Patient report given, questions answered & plan of care reviewed with NOEMI Tucker.
--- NOTE | 2019-04-04 18:30 | NUR ---
Patient in room [facility]. I have received report from RAHUL FRANKLIN and had the opportunity to ask questions and assume patient care.
[2019-04-05] VITALS: BP 128/62
[2019-04-05] MEDS: sodium bicarbonate (8.4%) inj. 100 MEQ in dextrose 5%-water 1,000 ML IV SCH (00:27)
[2019-04-05] MEDS: HYDROcodone/acetaminophen 10/325mg tab PO PRN ×2 (02:44→20:31)
[2019-04-05 04:43] LABS: BASOPHILS % (AUTO) 0.3 % (0-1); EOSINOPHILS # (AUTO) 0.1 X10'3 (0-0.9); EOSINOPHILS % (AUTO) 0.6 % (0-6); HEMATOCRIT 31.6 % (42.0-52.0); HEMOGLOBIN 10.6 g/dl (14.0-17.9); LYMPHOCYTES # (AUTO) 1.1 X10'3 (1.1-4.8); LYMPHOCYTES % (AUTO) 11.8 % (21-51); MEAN CORPUSCULAR HEMOGLOBIN 29.2 PG (27.0-31.0); MEAN CORPUSCULAR HGB CONC 33.4 g/dL (33.0-36.5); MEAN CORPUSCULAR VOLUME 87.4 FL (78-98); MEAN PLATELET VOLUME 7.5 FL (7.4-10.4); MONOCYTES # (AUTO) 1.2 X10'3 (0-0.9); MONOCYTES % (AUTO) 13.4 % (2-12); NEUTROPHILS # (AUTO) 6.7 X10'3 (1.8-7.7); NEUTROPHILS % (AUTO) 73.9 % (42-75); PLATELET COUNT 183 X10'3 (140-440); RED BLOOD COUNT 3.62 X10'6 (4.70-6.10); RED CELL DISTRIBUTION WIDTH 14.2 % (11.5-14.5)
[2019-04-05] MEDS ORDERED: famotidine 20mg tablet PO ONE (06:00)
--- NOTE | 2019-04-05 06:22 | NUR ---
Problems reprioritized. Patient report given, questions answered & plan of care reviewed with NIC RN.
[2019-04-05 06:30] VITALS: BP 132/55
--- NOTE | 2019-04-05 06:30 | NUR ---
Patient in room [facility]. I have received report from Chani Wilde RN and had the opportunity to ask questions and assume patient care.
[2019-04-05] MEDS: (Empagliflozin (Jardiance) 1 TAB) PO SCH (08:00)
[2019-04-05 08:15] LABS: ALANINE AMINOTRANSFERASE 25 U/L (12-78); ALBUMIN 2.7 G/DL (3.4-5.0); ALBUMIN/GLOBULIN RATIO 0.9 (1.1-1.5); ALKALINE PHOSPHATASE 44 IU/L (46-116); ANION GAP 7 (8-16); ASPARTATE AMINO TRANSFERASE 34 U/L (10-37); BILIRUBIN,TOTAL 1.4 MG/DL (0.1-1.0); BLOOD UREA NITROGEN 29 MG/DL (7-18); CHLORIDE 101 MMOL/L (99-107); CREATININE 1.32 MG/DL (0.60-1.10); GLUCOSE 112 MG/DL (70-104); MAGNESIUM 2.4 MG/DL (1.5-2.4); POTASSIUM 3.2 MMOL/L (3.5-5.1); SODIUM 136 MMOL/L (135-145); TOTAL CARBON DIOXIDE 28.1 MMOL/L (24-32); TOTAL PROTEIN 5.7 G/DL (6.4-8.2); eGFR 54 ML/MIN
[2019-04-05] MEDS ORDERED: potassium Cl 20 mEq SR tablet PO PRN (08:25)
[2019-04-05] MEDS ORDERED: potassium CL 10mEq/100ml bag 100 ML IV PRN (08:25)
[2019-04-05] MEDS: gabapentin 100mg capsule PO SCH ×2 (08:59→12:57)
[2019-04-05] MEDS: atorvastatin 20mg tablet PO SCH (09:00)
[2019-04-05] MEDS: aspirin 81mg tablet.DR PO SCH (09:00)
[2019-04-05] MEDS: cilostazol 50mg tablet PO SCH ×2 (09:00→20:10)
[2019-04-05] MEDS: lisinopril 20mg tablet PO SCH (09:02)
[2019-04-05] MEDS: acetylcysteine 200 MG/ml 4ml vial PO SCH ×2 (09:03→20:11)
[2019-04-05] MEDS: insulin Lispro (HumaLOG) vial - multi-dose SQ SCH ×3 (09:06→18:52)
[2019-04-05] MEDS: insulin glargine (Lantus) pen - multi-dose SQ SCH ×3 (09:07→21:00)
[2019-04-05] MEDS: potassium Cl 20 mEq SR tablet PO PRN ×3 (09:28→21:01)
[2019-04-05] MEDS: finasteride 5mg tablet PO SCH (09:33)
[2019-04-05 11:00] VITALS: BP 127/60
[2019-04-05] MEDS: normal saline 1000ml 1,000 ML IV SCH (11:05)
[2019-04-05] MEDS ORDERED: lactulose 20gm/30ml cup PO ONE (11:20)
[2019-04-05] MEDS ORDERED: lactulose 20gm/30ml cup PO PRN (11:20)
[2019-04-05 12:18] LABS: CLARITY,URINE CLEAR (Clear); COLOR,URINE YELLOW (Yellow); GLUCOSE, URINE >=1000 mg/dl (Neg); KETONES,URINE NEGATIVE (Neg); LEUKOCYTE ESTERASE ,URINE NEGATIVE (Neg); NITRITES, URINE NEGATIVE (Neg); OCCULT BLOOD,URINE LARGE (Neg); PH,URINE 6.5 (4.8-8.0); PROTEIN,URINE NEGATIVE (Neg)
[2019-04-05 12:21] LABS: UA COLLECTION TYPE NON-SPECIFIED
[2019-04-05 12:23] LABS: TOTAL PROTEIN,URINE RANDOM 8.6 MG/DL
[2019-04-05 12:25] LABS: BACTERIA,URINE NONE SEEN /HPF (Neg); MUCUS STRANDS NONE SEEN /LPF (Neg); RBC,URINE 20-50 /HPF (0-2); SQUAMOUS EPITHELIAL CELL,UR FEW /LPF (FEW); WBC,URINE 0-4 /HPF (0-4)
[2019-04-05 18:00] VITALS: BP 108/60
--- NOTE | 2019-04-05 18:00 | NUR ---
Problems reprioritized. Patient report given, questions answered & plan of care reviewed with NOEMI Herrera.
--- NOTE | 2019-04-05 18:23 | NUR ---
Patient in room [facility]. I have received report from NOEMI Rodriguez and had the opportunity to ask questions and assume patient care.
[2019-04-05 23:59] VITALS: BP 137/51
[2019-04-06] MEDS: normal saline 1000ml 1,000 ML IV SCH ×2 (00:04→06:10)
[2019-04-06 05:34] LABS: ALANINE AMINOTRANSFERASE 31 U/L (12-78); ALBUMIN 2.6 G/DL (3.4-5.0); ALBUMIN/GLOBULIN RATIO 0.8 (1.1-1.5); ALKALINE PHOSPHATASE 47 IU/L (46-116); ANION GAP 9 (8-16); ASPARTATE AMINO TRANSFERASE 30 U/L (10-37); BILIRUBIN,TOTAL 2.1 MG/DL (0.1-1.0); BLOOD UREA NITROGEN 16 MG/DL (7-18); BUN/CREATININE RATIO 16.2 (5.4-32.0); CALCIUM 7.8 MG/DL (8.5-10.1); CHLORIDE 101 MMOL/L (99-107); CREATININE 0.99 MG/DL (0.60-1.10); GLUCOSE 135 MG/DL (70-104); POTASSIUM 3.5 MMOL/L (3.5-5.1); SODIUM 136 MMOL/L (135-145); TOTAL CARBON DIOXIDE 26.1 MMOL/L (24-32); TOTAL PROTEIN 5.8 G/DL (6.4-8.2); eGFR 75 ML/MIN
[2019-04-06 05:35] LABS: BASOPHILS % (AUTO) 0.4 % (0-1); EOSINOPHILS % (AUTO) 0.5 % (0-6); HEMATOCRIT 31.8 % (42.0-52.0); HEMOGLOBIN 10.8 g/dl (14.0-17.9); LYMPHOCYTES # (AUTO) 1.2 X10'3 (1.1-4.8); LYMPHOCYTES % (AUTO) 13.6 % (21-51); MEAN CORPUSCULAR HEMOGLOBIN 29.7 PG (27.0-31.0); MEAN CORPUSCULAR HGB CONC 33.9 g/dL (33.0-36.5); MEAN CORPUSCULAR VOLUME 87.5 FL (78-98); MEAN PLATELET VOLUME 7.3 FL (7.4-10.4); MONOCYTES # (AUTO) 1.2 X10'3 (0-0.9); MONOCYTES % (AUTO) 13.2 % (2-12); NEUTROPHILS # (AUTO) 6.5 X10'3 (1.8-7.7); NEUTROPHILS % (AUTO) 72.3 % (42-75); PLATELET COUNT 178 X10'3 (140-440); RED BLOOD COUNT 3.63 X10'6 (4.70-6.10); RED CELL DISTRIBUTION WIDTH 14.2 % (11.5-14.5); WHITE BLOOD COUNT 8.9 X10'3 (4.5-11.0)
[2019-04-06 06:30] VITALS: BP 144/65
--- NOTE | 2019-04-06 06:40 | NUR ---
Patient in room [facility]. I have received report from NOEMI Herrera and had the opportunity to ask questions and assume patient care.
[2019-04-06 07:30] VITALS: BP 117/64
--- NOTE | 2019-04-06 07:30 | NUR ---
Patient report received from Payam.
[2019-04-06] MEDS ORDERED: gabapentin 300mg capsule PO SCH (08:00)
[2019-04-06] MEDS: aspirin 81mg tablet.DR PO SCH (08:14)
[2019-04-06] MEDS: atorvastatin 20mg tablet PO SCH (08:14)
[2019-04-06] MEDS: acetylcysteine 200 MG/ml 4ml vial PO SCH (08:15)
[2019-04-06] MEDS: finasteride 5mg tablet PO SCH (08:16)
[2019-04-06] MEDS: cilostazol 50mg tablet PO SCH (08:16)
[2019-04-06] MEDS: lisinopril 20mg tablet PO SCH (08:17)
[2019-04-06] MEDS: HYDROcodone/acetaminophen 10/325mg tab PO PRN (08:19)
[2019-04-06] MEDS: insulin glargine (Lantus) pen - multi-dose SQ SCH (08:31)
[2019-04-06] MEDS: insulin Lispro (HumaLOG) vial - multi-dose SQ SCH ×2 (08:35→13:46)
--- NOTE | 2019-04-06 10:30 | NUR ---
Student documentation: I have reviewed and agree with all interventions, assessments performed and documented by Corey, nursing program coordinator.
--- NOTE | 2019-04-06 10:31 | NUR ---
Student Medication Administration: For this medication-pass time frame, all medication were reviewed, dispensed, administered and documented per hospital policy by Corey nursing resident.
[2019-04-06 11:00] VITALS: BP 150/54
--- NOTE | 2019-04-06 12:03 | NUR ---
Patient report given to Deniese, questions answered & plan of care reviewed with .
[2019-04-06 13:24] VITALS: BP 150/54
--- NOTE | 2019-04-06 14:15 | NUR ---
DC inst provided to pt. IV x2 DC'd, tips intact. All belongings sent w/pt. WC to front lobby.
== END 2019-04-06 14:15 | disposition home or self-care (01) | DRG 252 ==
LOC: PAS IN 05:18 → EDSTATUS 07:30 → CICU 2S 08:55 → EDSTATUS 16:45 → SUR 3N 04-02 18:12
PROVIDERS: ADMIT Surgery; ATTEND Surgery
PROC: 04UK0JZ Supplement Right Femoral Artery with Synthetic Substitute, Open Approach (ICD-10-PCS; 2019-04-01)
PROC: 04CK0ZZ Extirpation of Matter from Right Femoral Artery, Open Approach (ICD-10-PCS; principal; 2019-04-01 07:41)
PROC: 047H3DZ Dilation of Right External Iliac Artery with Intraluminal Device, Percutaneous Approach (ICD-10-PCS; 2019-04-04)
PROC: B41F1ZZ Fluoroscopy of Right Lower Extremity Arteries using Low Osmolar Contrast (ICD-10-PCS; 2019-04-04)
PROC: B4201ZZ Computerized Tomography (CT Scan) of Abdominal Aorta using Low Osmolar Contrast (ICD-10-PCS; 2019-04-04)
PROC: B4241ZZ Computerized Tomography (CT Scan) of Superior Mesenteric Artery using Low Osmolar Contrast (ICD-10-PCS; 2019-04-04)
PROC: B4281ZZ Computerized Tomography (CT Scan) of Bilateral Renal Arteries using Low Osmolar Contrast (ICD-10-PCS; 2019-04-04)
PROC: B42H1ZZ Computerized Tomography (CT Scan) of Bilateral Lower Extremity Arteries using Low Osmolar Contrast (ICD-10-PCS; 2019-04-04)
PROC: B4211ZZ Computerized Tomography (CT Scan) of Celiac Artery using Low Osmolar Contrast (ICD-10-PCS; 2019-04-04)
PROC: B42H1ZZ Computerized Tomography (CT Scan) of Bilateral Lower Extremity Arteries using Low Osmolar Contrast (ICD-10-PCS; 2019-04-04)
DX: T82.856A Stenosis of peripheral vascular stent, initial encounter (principal); N17.0 Acute kidney failure with tubular necrosis; I70.218 Atherosclerosis of native arteries of extremities with intermittent claudication, other extremity; E11.40 Type 2 diabetes mellitus with diabetic neuropathy, unspecified; E11.51 Type 2 diabetes mellitus with diabetic peripheral angiopathy without gangrene; K21.9 Gastro-esophageal reflux disease without esophagitis; E66.01 Morbid (severe) obesity due to excess calories; Y82.8 Other medical devices associated with adverse incidents; I10 Essential (primary) hypertension; G47.30 Sleep apnea, unspecified; J44.9 Chronic obstructive pulmonary disease, unspecified; N40.0 Benign prostatic hyperplasia without lower urinary tract symptoms; N50.89 Other specified disorders of the male genital organs; Z87.891 Personal history of nicotine dependence; Z68.37 Body mass index [BMI] 37.0-37.9, adult; Z79.899 Other long term (current) drug therapy; Z79.82 Long term (current) use of aspirin; Y92.89 Other specified places as the place of occurrence of the external cause
CPT/HCPCS: 36245; 36415; 37220; 37221; 73706; 74174; 75710; 76937; 80047; 80053; 81001; 82570; 82948; 83036; 83735; 84156; 85025; 85347; 85610; 85730; 86885; 86900; 86901; 86920; 87081; 93005; 93922; 93926; 97116; 97162; 97530; 99152; 99153; A4618; A6258; A7000; C1725; C1757; C1758; C1768; C1769; C1876; C1894; G0378; J0690; J1170; J1265; J1644; J1815; J2250; J2270; J2405; J2704; J3010; J7030; J7040; J7120; J7121; P9045; Q9967

== ENCOUNTER 2019-04-11 09:50 | Emergency (ER) | payer MEDICARE, OTHER ==
[~2019-04-11] VITALS: Ht 182.9 cm; Wt 128.0 kg
[~2019-04-11 09:50] MED LIST changes: +CYAN100T45 PO; -VITAMIN B-12; -ringers solution, lacted 1,000 ML IV SCH
--- NOTE | 2019-04-11 10:22 | NUR ---
Dr. Luna at bedside.
--- NOTE | 2019-04-11 11:03 | NUR ---
CLASSIFIED ADVERTISING CLERK IS CALLING IN THE CIRCULATING OR NURSE TO REPLACE WOUND VAC, PER DR. VERDE. THEN HE WANTS PT. TO BE DISCHARGED HOME FROM THE ER, AND TO FOLLOW UP WITH HIM ON SATURDAY.
--- NOTE | 2019-04-11 11:51 | NUR ---
OR staff/Siria to come down to ED to replace the woundvac-per [employer]ot Knitter Talisha.patient made aware.
[2019-04-11 12:42] VITALS: BP 116/56
== END 2019-04-11 13:19 | disposition home or self-care (01) ==
LOC: ER 09:52
DX: Z48.01 Encounter for change or removal of surgical wound dressing (principal); I10 Essential (primary) hypertension; J44.9 Chronic obstructive pulmonary disease, unspecified; K21.9 Gastro-esophageal reflux disease without esophagitis; E11.9 Type 2 diabetes mellitus without complications; Z98.890 Other specified postprocedural states; Z79.82 Long term (current) use of aspirin; Z79.4 Long term (current) use of insulin; Z79.899 Other long term (current) drug therapy
CPT/HCPCS: 99284

== ENCOUNTER 2022-05-10 07:14 | Inpatient (IN) | payer OTHER ==
[2022-05-03 16:15] LABS: HEMOGLOBIN A1C 6.7 % (4.5-6.2)
[2022-05-03 16:26] LABS: ALBUMIN 4.3 G/DL (3.4-5.0); ALBUMIN/GLOBULIN RATIO 1.3 (1.1-1.5); ALKALINE PHOSPHATASE 58 IU/L (46-116); BLOOD UREA NITROGEN 15 MG/DL (7-18); BUN/CREATININE RATIO 17.4 (5.4-32.0); CALCIUM 9.4 MG/DL (8.5-10.1); CHLORIDE 102 MMOL/L (99-107); CREATININE 0.86 MG/DL (0.60-1.10); PRE OP ALT 28 U/L (30-65); PRE OP AST 24 U/L (10-37); PRE OP BILIRUB, TOTAL 1.9 MG/DL (0.0-1.0); PRE OP GLUCOSE 174 MG/DL (70-104); TOTAL CARBON DIOXIDE 26.6 MMOL/L (24-32); TOTAL PROTEIN 7.5 G/DL (6.4-8.2); eGFR 88 ML/MIN
[2022-05-03 16:37] LABS: PRE OP ANION GAP 10 (8-16); PRE OP SODIUM 139 MMOL/L (135-145)
[2022-05-03 16:48] LABS: BASOPHILS % (AUTO) 0.3 % (0-1); EOSINOPHILS # (AUTO) 0.1 X10'3 (0-0.9); EOSINOPHILS % (AUTO) 0.6 % (0-6); MEAN PLATELET VOLUME 8.2 FL (7.4-10.4); MONOCYTES # (AUTO) 0.7 X10'3 (0-0.9)
[2022-05-03 16:49] LABS: LYMPHOCYTES # (AUTO) 1.6 X10'3 (1.1-4.8); LYMPHOCYTES % (AUTO) 19.8 % (21-51); MEAN CORPUSCULAR HEMOGLOBIN 29.3 PG (27.0-31.0); MEAN CORPUSCULAR VOLUME 88.8 FL (78-98); NEUTROPHILS # (AUTO) 5.9 X10'3 (1.8-7.7); NEUTROPHILS % (AUTO) 71.3 % (42-75); PRE OP HEMATOCRIT 54.6 % (42.0-52.0); PRE OP PLATELET COUNT 179 X10'3 (140-440); RED BLOOD COUNT 6.15 X10'6 (4.70-6.10); RED CELL DISTRIBUTION WIDTH 14.2 % (11.5-14.5)
[~2022-05-10] VITALS: Ht 175.3 cm; Wt 99.5 kg
[2022-05-10] VITALS (18 sets, daily range): BP systolic 99–151; BP diastolic 50–78
[2022-05-10] MEDS: potassium cl 20mEq in 1/2 NS 1,000 ML IV SCH ×3 (06:45→22:46)
[~2022-05-10 07:14] MED LIST changes: +CALC600T26 PO; -CILO50TA PO; +DEXTROSE 15 GM of carb/4 tabs (each vial/BOTTLE has 4 tablets) PO PRN; -GLIP10TA11 PO; -HYDR-3972 PO; +HYDROcodone/acetaminophen 10/325mg tab PO PRN; +HYDROmorphone 1 mg/ml syringe IV PRN; +HYDROmorphone inj. 0.5 MG/0.5 ML DISP.SYRIN IV PRN; -LISI-600 PO; +LISI20TA28 PO; +MESSAGE TO PHARMACY PO ONE; -QUET100T33 PO; +QUET100T34 PO; +SEMA2PEN SQ; -TRAM50TA2 PO; -VENL-190 PO; +acetaminophen 325mg tablet PO ONE; +acetaminophen 325mg tablet PO PRN; +bisacodyl 10mg suppository rectal RC PRN; +ceFAZolin inj. 2,000 MG in dextrose 5%-water 100 ML IV ONE; +celeCOXIB 100mg capsule PO ONE; +dextrose 50%-water 50ml dispensing syringe IV PRN; +diphenhydrAMINE 25mg capsule PO PRN; +famotidine 20mg tablet PO ONE; +gabapentin 300mg capsule PO ONE; +glucagon, human recombinant 1mg kit SUBCUT PRN; +insulin Lispro (HumaLOG) vial - multi-dose SQ SCH; +magnesium hydroxide 30ml (MOM) UD suspension PO PRN; +metoclopramide 5 mg/ml inj IV ONE; +naloxone 0.4 mg/ml inj IV PRN; +ondansetron/PF 4mg/2ml inj IV PRN; +oxyCODONE SR 10mg (sust. release) tab -2 tabs (20mg) PO ONE; +quetiapine 100mg tablet PO PRN; +ringers solution, lacted 1,000 ML IV SCH; +temazepam 15mg capsule PO PRN; +tranexamic acid inj. 1,000 MG in normal saline IV soln 100ML IV ONE; +vancomycin 1,500 MG in NS 300ml IV soln IV ONE
[2022-05-10] MEDS ORDERED: INSULIN DETEMIR 15 UNIT SQ SCH (08:00)
[2022-05-10] MEDS: lisinopril 20mg tablet PO SCH (08:00)
[2022-05-10] MEDS: atorvastatin 20mg tablet PO SCH (08:00)
[2022-05-10] MEDS ORDERED: ketorolac trometh. 30mg/ml inj. ONE (10:30)
[2022-05-10] MEDS ORDERED: epiNEPHrine 1 mg/ml inj ONE (10:30)
--- NOTE | 2022-05-10 10:30 | NUR ---
[facility] NOTE: PT STATES HE USED HIBICLENS X5 DAYS. NO MUPIROCIN OINTMENT ORDERED FOR THIS PT. PT STATES HE READ BOOKLET BUT DID NOT WATCH VIDEO. HE HAS BEEN EDUCATED ON USE OF IS. PT HAS PALPABLE BILAT RADIAL PULSES.
[2022-05-10] MEDS ORDERED: vancomycin 1,000mg inj ONE (10:31)
[2022-05-10] MEDS ORDERED: cloNIDine hcl/PF 100mcg/ml inj ONE (10:31)
[2022-05-10] MEDS ORDERED: tranexamic acid 100mg/ml inj. ONE (10:31)
[2022-05-10] MEDS ORDERED: ROPIVAcaine 0.5% (5mg/ml) 30ml vial ONE ×2 (10:31→13:23)
[2022-05-10] MEDS ORDERED: MIDAZolam 1 MG/ML 5ML VIAL ONE (10:42)
[2022-05-10] MEDS ORDERED: FENTANYL CITRATE/PF 50 MCG/1 ML VIAL ONE (10:42)
[2022-05-10] MEDS ORDERED: propofol inj 20 ML IV ONE (10:42)
[2022-05-10] MEDS ORDERED: rocuronium 10mg/ml inj IV ONE (10:46)
[2022-05-10] MEDS ORDERED: sevoflurane 250ml liquid IH ONE (10:46)
[2022-05-10] MEDS ORDERED: ROPIVAcaine 0.5% (5mg/ml) 30ml vial IJ ONE (12:30)
[2022-05-10] MEDS ORDERED: morphine 4 MG/ML inj SYRINge IV PRN (12:30)
[2022-05-10] MEDS ORDERED: meperidine/PF 25mg/ml syringe IV PRN ×3 (12:30)
[2022-05-10] MEDS ORDERED: ringers solution, lacted 1,000 ML IV SCH (12:30)
[2022-05-10] MEDS ORDERED: proCHLORperazine 10 MG/2 ml inj IV PRN (12:30)
[2022-05-10] MEDS ORDERED: ondansetron/PF 4mg/2ml inj IV PRN (12:30)
[2022-05-10] MEDS ORDERED: morphine 2 MG/ML inj. syringe IV PRN (12:30)
[2022-05-10] MEDS ORDERED: ketorolac trometh. 30mg/ml inj. IV ONE (12:31)
[2022-05-10] MEDS ORDERED: cloNIDine hcl/PF 100mcg/ml inj EP ONE (12:31)
[2022-05-10] MEDS ORDERED: epiNEPHrine 1 mg/ml inj SQ ONE (12:32)
[2022-05-10] MEDS ORDERED: ROPIVAcaine 0.2% (10 MG/5 ML) BOLUS INJECTION INTERSCALE PRN (12:54)
[2022-05-10] MEDS ORDERED: ROPIVAcaine 0.2%/PF PUMP/bolus 545 ML INTERSCALE SCH (12:55)
--- NOTE | 2022-05-10 13:26 | NUR ---
Received from OR via SURGICAL BED , accompanied by Anesthesiologist DENISE and report given by Anesthesiolgist. PATIENT WITH 18G PIV IN RIGHT UE RUNNING LR AT 100. VSS. PATIENT WITH 10L MASK ON, SCDS BILATERALLY. ANTERIOR LEFT SHOULDER DRESSING WITH ON QON Q NERVE BLOCK PORT ACCESSIBLE FROM THE RIGHT SIDE OF PATIENT NECK. ALL DRESSINGS CDI AND PATIENT IN SLING. + RADIAL PULSE PRESENT. Addendum: 05/10/22 at 1345 by Corey Reyes RN RN Amended: Links added.
--- NOTE | 2022-05-10 14:26 | NUR ---
Report called to receiving nurse. Transferred via SURGICAL BED WITH NO Belongings . Special Issues communicated to receiving nurse NICKI FRANKLIN. Addendum: 05/10/22 at 1433 by Corey Reyes RN, RN Amended: Links added.
[2022-05-10] MEDS ORDERED: tranexamic acid inj. 1,000 MG in normal saline 100ml IV soln 90 ML IV ONE (16:30)
--- NOTE | 2022-05-10 18:31 | NUR ---
Problems reprioritized. Patient report given, questions answered & plan of care reviewed with NAHED FRANKLIN.
[2022-05-10] MEDS: gabapentin 300mg capsule PO SCH (20:50)
[2022-05-10] MEDS ORDERED: sennosides 8.6mg tablet PO SCH (21:00)
[2022-05-10] MEDS ORDERED: insulin glargine (Lantus) pen - multi-dose SQ SCH (21:00)
[2022-05-10] MEDS ORDERED: Terazosin 1mg capsule PO SCH (21:00)
[2022-05-10] MEDS ORDERED: VANCOMYCIN 1,500MG inj. 1,500 MG in normal saline 500ml IV soln 300 ML IV ONE (21:00)
[2022-05-10] MEDS ORDERED: quetiapine 100mg tablet PO PRN (21:17)
[2022-05-11 02:00] VITALS: BP 126/70
[2022-05-11] MEDS: potassium cl 20mEq in 1/2 NS 1,000 ML IV SCH (05:07)
--- NOTE | 2022-05-11 06:20 | NUR ---
Patient in room [facility]. I have received report from NOEMI Rm and had the opportunity to ask questions and assume patient care.
[2022-05-11 06:30] VITALS: BP 139/75
[2022-05-11 07:08] LABS: BASOPHILS % (AUTO) 0.3 % (0-1); EOSINOPHILS % (AUTO) 0.5 % (0-6); HEMOGLOBIN 16.5 g/dl (14.0-17.9); LYMPHOCYTES # (AUTO) 1.1 X10'3 (1.1-4.8); LYMPHOCYTES % (AUTO) 12.7 % (21-51); MEAN CORPUSCULAR HEMOGLOBIN 29.3 PG (27.0-31.0); MEAN CORPUSCULAR HGB CONC 32.9 g/dL (33.0-36.5); MEAN CORPUSCULAR VOLUME 88.8 FL (78-98); MEAN PLATELET VOLUME 7.7 FL (7.4-10.4); MONOCYTES # (AUTO) 0.9 X10'3 (0-0.9); MONOCYTES % (AUTO) 10.6 % (2-12); NEUTROPHILS # (AUTO) 6.7 X10'3 (1.8-7.7); NEUTROPHILS % (AUTO) 75.9 % (42-75); PLATELET COUNT 141 X10'3 (140-440); RED BLOOD COUNT 5.64 X10'6 (4.70-6.10); RED CELL DISTRIBUTION WIDTH 13.9 % (11.5-14.5); WHITE BLOOD COUNT 8.8 X10'3 (4.5-11.0)
[2022-05-11] MEDS ORDERED: finasteride 5mg tablet PO SCH (08:00)
[2022-05-11] MEDS ORDERED: ascorbic acid 500mg tablet PO SCH (08:00)
[2022-05-11] MEDS ORDERED: multivitamins, therapeutics tablet PO SCH (08:00)
[2022-05-11] MEDS ORDERED: aspirin 325mg tablet PO SCH (08:30)
[2022-05-11 08:38] LABS: ANION GAP 9 (8-16); CHLORIDE 104 MMOL/L (99-107); POTASSIUM 4.3 MMOL/L (3.5-5.1); SODIUM 137 MMOL/L (135-145); TOTAL CARBON DIOXIDE 23.9 MMOL/L (24-32)
[2022-05-11] MEDS: gabapentin 300mg capsule PO SCH (08:44)
[2022-05-11] MEDS: atorvastatin 20mg tablet PO SCH (08:45)
[2022-05-11] MEDS: lisinopril 20mg tablet PO SCH (08:45)
[2022-05-11 10:00] VITALS: BP 125/65
--- NOTE | 2022-05-11 12:20 | NUR ---
DC inst provided to pt & pt's son. IV DC'd, tip intact. All belongings sent w/pt. WC to vehicle.
[2022-05-11] MEDS ORDERED: celeCOXIB 100mg capsule PO SCH (20:00)
== END 2022-05-11 12:20 | disposition home or self-care (01) | DRG 483 ==
LOC: PAS 07:14 → SUR 3N 07:15 → EDSTATUS 08:45
PROVIDERS: ADMIT Orthopaedic Surgery; ATTEND Orthopaedic Surgery
PROC: 3E0T3BZ Introduction of Anesthetic Agent into Peripheral Nerves and Plexi, Percutaneous Approach (ICD-10-PCS; 2022-05-10)
PROC: 3E0T33Z Introduction of Anti-inflammatory into Peripheral Nerves and Plexi, Percutaneous Approach (ICD-10-PCS; 2022-05-10)
PROC: 0RRK00Z Replacement of Left Shoulder Joint with Reverse Ball and Socket Synthetic Substitute, Open Approach (ICD-10-PCS; principal; 2022-05-10 10:46)
DX: M19.012 Primary osteoarthritis, left shoulder (principal); M75.122 Complete rotator cuff tear or rupture of left shoulder, not specified as traumatic; E66.9 Obesity, unspecified; J44.9 Chronic obstructive pulmonary disease, unspecified; E11.9 Type 2 diabetes mellitus without complications; G47.30 Sleep apnea, unspecified; I10 Essential (primary) hypertension; E78.00 Pure hypercholesterolemia, unspecified; Z79.84 Long term (current) use of oral hypoglycemic drugs; Z79.899 Other long term (current) drug therapy; Z79.82 Long term (current) use of aspirin; Z68.32 Body mass index [BMI] 32.0-32.9, adult
CPT/HCPCS: 36415; 71046; 73020; 80051; 80053; 82948; 83036; 85025; 86885; 86900; 86901; 87081; 93005; 97116; 97161; 97530; A4615; G0378; J0171; J0690; J0735; J1815; J1885; J2250; J2704; J2765; J2795; J3010; J3370; J3480; J3490; J7040; J7060; J7120